=== PATIENT | male | born 1960 | race African-American/Black ===

== ENCOUNTER 2017-10-20 08:09 | Emergency (ER) | payer MEDICAID ==
[~2017-10-20] VITALS: Ht 190.5 cm; Wt 98.9 kg
[2017-10-20] MEDS ORDERED: NALBUPHINE HCL 10 MG/1ml INJECTION ONE (08:48)
[2017-10-20] MEDS ORDERED: NALBUPHINE HCL 10 MG/1ml INJECTION IM ONE (09:00)
[2017-10-20] MEDS ORDERED: LIDOCAINE 1% HCL (LOCAL ANESTH.) INJ 20ML MDV ONE (10:00)
[2017-10-20] MEDS ORDERED: cefTRIAXone SOD 1,000 MG VL ONE (10:01)
[2017-10-20] MEDS ORDERED: cefTRIAXone W LIDOCAINE 1 GM IM IM ONE (10:15)
[2017-10-20 10:28] VITALS: BP 125/79
== END 2017-10-20 11:16 | disposition home or self-care (01) ==
LOC: ER 08:09
DX: S90.01XA Contusion of right ankle, initial encounter (principal); Z88.6 Allergy status to analgesic agent; X58.XXXA Exposure to other specified factors, initial encounter; Y93.89 Activity, other specified; Y92.89 Other specified places as the place of occurrence of the external cause; Y99.8 Other external cause status
CPT/HCPCS: 73700; 94761; 96372; 99284; J0696; J2300; J2001

== ENCOUNTER 2018-02-20 09:56 | Emergency (ER) | payer MEDICAID ==
[~2018-02-20] VITALS: Ht 190.5 cm; Wt 102.1 kg
[2018-02-20 10:39] VITALS: BP 128/82
== END 2018-02-20 11:05 | disposition home or self-care (01) ==
LOC: ER 09:56
DX: I10 Essential (primary) hypertension (principal); F41.9 Anxiety disorder, unspecified; G89.29 Other chronic pain; Z88.8 Allergy status to other drugs, medicaments and biological substances; Z76.0 Encounter for issue of repeat prescription

== ENCOUNTER 2018-10-15 13:52 | Emergency (ER) | payer MEDICAID ==
[~2018-10-15] VITALS: Ht 190.5 cm; Wt 96.2 kg
[2018-10-15] MEDS: cefTRIAXone SOD 1,000 MG VL IM ONE (15:59)
[2018-10-15] MEDS: HYDROcodone-ACET 10/325MG TAB PO ONE (15:59)
[2018-10-15] MEDS: LIDOCAINE 2% (LOCAL ANESTH.) PF 5ml SDV ONE (16:00)
[2018-10-15 17:40] VITALS: BP 134/89
[2018-10-15 17:43] LABS: Basophils # (auto) 0 uL; Eosinophils # (auto) 0.2 uL; Monocytes # (auto) 0.8 uL; Neutrophils # (auto) 3.6 uL
[2018-10-15 17:44] LABS: Basophils % (auto) 0.7 % (0.0-2.0); Eosinophils % (auto) 2.8 % (0.0-7.0); Hematocrit 34.3 % (41.0-53.0); Hemoglobin 11.6 g/dL (13.5-17.5); Lymphocytes % (auto) 29.5 % (10.0-50.0); Mean Corpuscular Hemoglobin 27.9 pg (28.0-32.0); Mean Corpuscular Hgb Conc. 33.9 g/dL (32.0-36.0); Mean Corpuscular Volume 82.3 fL (80.0-100.0); Monocytes % (auto) 12.4 % (0.0-12.0); Neutrophils % (auto) 54.6 % (37.0-80.0); Platelet Count (auto) 459 10^3/uL (140-450); Red Blood Cells 4.16 10^6/uL (4.5-5.90); Red Cell Distribution Width 15.2 % (11.8-14.3); White Blood Cell 6.6 10^3/uL (4.4-10.8)
[2018-10-15 17:53] LABS: Albumin 2.7 g/dL (3.4-5.0); BUN/Creatinine Ratio 13.6; Calcium 8.9 mg/dL (8.5-10.1); Potassium 4.5 mmol/L (3.5-5.1)
[2018-10-15 17:57] LABS: INR 1.02 (0.9-1.15); Partial Thromboplastin Time 28.2 sec (23.78-33.04); Prothrombin Time 10.9 sec (9.27-12.13)
[2018-10-15] MEDS: SODIUM CHLORIDE 0.9% 1,000 ML IV ONE (17:58)
[2018-10-15 18:02] LABS: Bilirubin, Total 0.3 mg/dL (0.2-1.0); Total Protein 8.2 g/dL (6.4-8.2)
[2018-10-15 18:04] LABS: Urine Bacteria NONE SEEN /hpf (None Seen); Urine Blood Negative /uL (Negative); Urine Hyaline Cast FEW /lpf (0 - 2); Urine Specific Gravity 1.015 (1.001-1.035); Urine WBC <1 /hpf (0 - 3)
[2018-10-15] MEDS: ONDANSETRON HCL 4 MG/2 ML VIAL IV ONE (18:12)
[2018-10-15] MEDS: MORPHINE SULFATE 4 MG/ML SYR/VIAL IV ONE (18:12)
[2018-10-15] MEDS: VANCOMYCIN 1GM/250ML 250 ML IV ONE (18:12)
== END 2018-10-15 18:40 | disposition home or self-care (01) ==
LOC: ER 13:57
DX: M86.8X7 Other osteomyelitis, ankle and foot (principal); I10 Essential (primary) hypertension; Z88.6 Allergy status to analgesic agent; X58.XXXA Exposure to other specified factors, initial encounter; Y93.89 Activity, other specified; Y92.89 Other specified places as the place of occurrence of the external cause; Y99.8 Other external cause status
CPT/HCPCS: 36415; 73700; 80053; 81001; 85025; 85610; 85652; 85730; 87040; 96365; 96372; 96375; 99284; J0696; J2001; J2270; J2405; J3370

== ENCOUNTER 2018-10-30 22:07 | Emergency (ER) | payer MEDICAID ==
[~2018-10-30] VITALS: Ht 190.5 cm; Wt 96.2 kg
[2018-10-30 22:49] LABS: Basophils # (auto) 0.1 uL; Eosinophils # (auto) 0 uL; Lymphocytes # (auto) 1.7 uL; Monocytes # (auto) 1.7 uL; Monocytes % (auto) 12.2 % (0.0-12.0); Neutrophils % (auto) 74.9 % (37.0-80.0)
[2018-10-30 22:50] LABS: Basophils % (auto) 0.6 % (0.0-2.0); Eosinophils % (auto) 0.2 % (0.0-7.0); Hematocrit 34.9 % (41.0-53.0); Hemoglobin 12.1 g/dL (13.5-17.5); Lymphocytes % (auto) 12.1 % (10.0-50.0); Mean Corpuscular Hemoglobin 27.7 pg (28.0-32.0); Mean Corpuscular Hgb Conc. 34.7 g/dL (32.0-36.0); Mean Corpuscular Volume 79.9 fL (80.0-100.0); Neutrophils # (auto) 10.5 uL; Platelet Count (auto) 517 10^3/uL (140-450); Red Blood Cells 4.36 10^6/uL (4.5-5.90); Red Cell Distribution Width 15.3 % (11.8-14.3)
[2018-10-30 23:04] LABS: Albumin 3.1 g/dL (3.4-5.0); BUN/Creatinine Ratio 15.2; Calcium 9.5 mg/dL (8.5-10.1)
[2018-10-30 23:07] LABS: Bilirubin, Total 0.8 mg/dL (0.2-1.0); Total Protein 9.1 g/dL (6.4-8.2)
[2018-10-31] MEDS: ONDANSETRON ODT 4 MG TAB PO ONE (00:33)
[2018-10-31] MEDS: HYDROmorphone HCL 2 MG/ML VL IV ONE (00:33)
[2018-10-31 00:57] VITALS: BP 118/76
== END 2018-10-31 01:05 | disposition home or self-care (01) ==
LOC: ER 22:07
DX: M00.871 Arthritis due to other bacteria, right ankle and foot (principal); B96.89 Other specified bacterial agents as the cause of diseases classified elsewhere; I10 Essential (primary) hypertension; Z53.29 Procedure and treatment not carried out because of patient's decision for other reasons; Z88.8 Allergy status to other drugs, medicaments and biological substances
CPT/HCPCS: 36415; 73700; 80053; 85025; 87040; 96374; 99284; J1170; Q0162